=== PATIENT | female | born 1930 | race Caucasian/White ===

== ENCOUNTER → 2017-12-09 | Outpatient (CLI) | payer MEDICARE ==
[~2017-12-09] MED LIST: CEFD300C37 PO; LATA2.5D3 EACHEYE; LIOT25TA10 PO; THYROID PO; TIMO5DRO5 EACHEYE
== END | disposition home or self-care (01) ==
LOC: CVU 13:32 → EDSTATUS 14:00
PROVIDERS: ATTEND Surgery
DX: I83.021 Varicose veins of left lower extremity with ulcer of thigh (principal); I83.022 Varicose veins of left lower extremity with ulcer of calf; Z88.1 Allergy status to other antibiotic agents
CPT/HCPCS: 93970